=== PATIENT | female | born 1955 | race African-American/Black ===

== ENCOUNTER → 2022-04-03 | Outpatient (CLI) | payer MEDICARE, MEDICAID ==
[~2022-04-03] MED LIST: AMLO10TA80 PO; CYCL10TA21 PO; GABA-290 PO; HYDR-4009 PO; LOSA1TAB34 PO; MELO-104 PO; NALD0.2T3 PO
== END | disposition home or self-care (01) ==
LOC: LAB 08:11
PROVIDERS: ATTEND Surgery
DX: Z01.812 Encounter for preprocedural laboratory examination (principal); Z20.822 Contact with and (suspected) exposure to COVID-19
CPT/HCPCS: 87426; C9803

== ENCOUNTER 2022-04-04 06:38 | Inpatient (IN) | payer MEDICARE, MEDICAID ==
[~2022-04-04] VITALS: Ht 154.9 cm; Wt 93.9 kg
[2022-04-04] MEDS ORDERED: LACTATED RINGERS 1,000 ML IV SCH (06:45)
[2022-04-04] MEDS ORDERED: BUPIVACAINE HCL 0.5% (5MG/ML) 50ML ONE (06:48)
[2022-04-04] MEDS ORDERED: SKIN ADHESIVE 0.7 GM EA TOP ONE (06:49)
[2022-04-04] MEDS ORDERED: TRIAMCINOLONE ACETONIDE 40MG/ML 1ML VIAL ONE (07:17)
[2022-04-04] MEDS ORDERED: ONDANSETRON HCL 4MG/2ML INJ IV SCH (07:45)
[2022-04-04] MEDS ORDERED: ONDANSETRON HCL 4MG/2ML INJ ONE ×2 (07:47→08:32)
[2022-04-04] MEDS ORDERED: CEFAZOLIN SODIUM 1000MG/VIAL ONE (08:21)
[2022-04-04] MEDS ORDERED: SUCCINYLCHOLINE CHLORIDE 200MG/10ML IV ONE (08:21)
[2022-04-04] MEDS ORDERED: MIDAZOLAM HCL 2 MG/2 ML VIAL ONE (08:22)
[2022-04-04] MEDS ORDERED: FENTANYL CITRATE/PF 50MCG/ML 2ML VIAL ONE (08:22)
[2022-04-04] MEDS ORDERED: PROPOFOL 200MG/20ML VIAL IV ONE (08:22)
[2022-04-04] MEDS ORDERED: ROCURONIUM BROMIDE 10MG/ML VIAL 5ML IV ONE (08:32)
[2022-04-04] MEDS ORDERED: GLYCOPYRROLATE 0.2 MG/ML 2ML VIAL ONE ×2 (08:32)
[2022-04-04] MEDS ORDERED: DEXAMETHASONE 4MG/ML 1ML VIAL ONE (08:32)
[2022-04-04] MEDS ORDERED: NEOSTIGMINE METHYLSULFATE 1MG/ML 10 ML VIAL ONE (08:32)
[2022-04-04] MEDS ORDERED: METRONIDAZOLE 500 MG PREMIX 100 ML IV ONE (08:48)
[2022-04-04] MEDS: ENOXAPARIN 30MG/0.3ML SYR SUBCUT SCH (09:00)
[2022-04-04] MEDS ORDERED: HYDROMORPHONE HCL/PF 2MG/ML CPJ ONE (09:06)
[2022-04-04] MEDS ORDERED: BUPIVACAINE HCL/PF 0.5% (5MG/ML) 10ML ONE (09:07)
[2022-04-04] MEDS ORDERED: MEPERIDINE HCL/PF 25MG/ML CPJ IV PRN (09:30)
[2022-04-04] MEDS ORDERED: ONDANSETRON HCL 4MG/2ML INJ IV PRN ×2 (09:30→14:15)
[2022-04-04] MEDS ORDERED: LABETALOL 5MG/ML SYR 20 MG/4 ML SYRINGE IV PRN (09:30)
[2022-04-04] MEDS ORDERED: BUPIVACAINE HCL 0.5% 125 ML in ON-Q PM012 DRUG DELIV DEVICE 1 EA IR SCH (10:00)
[2022-04-04] MEDS: HYDROMORPHONE HCL/PF 2MG/ML CPJ IV PRN ×4 (11:04→15:18)
[2022-04-04] MEDS ORDERED: IPRATROPIUM/ALBUTEROL 0.5-3(2.5)MG/3ML NEB HHN SCH (11:30)
[2022-04-04] MEDS ORDERED: IPRATROPIUM/ALBUTEROL 0.5-3(2.5)MG/3ML NEB ONE (11:46)
[2022-04-04] MEDS ORDERED: ACETAMINOPHEN 650MG SUPP PR PRN ×2 (14:15)
[2022-04-04] MEDS: NITROGLYCERIN OINT 1GM/INCH UDPKT TD SCH ×3 (14:15→22:00)
[2022-04-04] MEDS ORDERED: HYDRALAZINE 20MG/ML VIAL IV PRN (14:15)
[2022-04-04 17:26] VITALS: BP 123/53
[2022-04-04 18:08] VITALS: BP 123/53
[2022-04-04] MEDS ORDERED: NALOXONE HCL 0.4MG/ML VIAL IV PRN (19:00)
[2022-04-04 20:00] VITALS: BP 139/63
[2022-04-04] MEDS: MORPHINE SULFATE 2 MG/ML CPJ (NOT FOR IM USE) IV PRN (20:41)
[2022-04-05] VITALS: BP 135/61
[2022-04-05] MEDS: MORPHINE SULFATE 2 MG/ML CPJ (NOT FOR IM USE) IV PRN (01:13)
[2022-04-05 04:00] VITALS: BP 134/59
[2022-04-05] MEDS: NITROGLYCERIN OINT 1GM/INCH UDPKT TD SCH ×3 (06:00→21:56)
[2022-04-05 06:28] LABS: HEMATOCRIT. 37.6 % (36.0-48.0); HEMOGLOBIN. 11.9 g/dL (12.0-16.0); MEAN CORPUSCULAR HEMOGLOBIN 26.4 pg (28.0-32.0); MEAN CORPUSCULAR VOLUME 83.1 fL (81.0-99.0); MEAN PLATELET VOLUME 8.6 fl (7.4-10.4); PLATELET 265 x1000/uL (130-400); RED BLOOD CELL COUNT 4.52 mill/uL (4.2-5.4); RED CELL DISTRIBUTION WIDTH 14.6 % (11.6-14.6)
[2022-04-05 06:42] LABS: CHLORIDE 103 mEq/L (98-107)
[2022-04-05 06:50] LABS: PHOSPHORUS 2.9 mg/dL (2.5-4.9)
[2022-04-05 08:00] VITALS: BP 138/75
[2022-04-05] MEDS: ENOXAPARIN 30MG/0.3ML SYR SUBCUT SCH ×3 (09:00→21:56)
[2022-04-05] MEDS ORDERED: DEXTROSE 50% WATER 50ML SYRINGE IV PRN (09:15)
[2022-04-05] MEDS: HYDROMORPHONE HCL/PF 2MG/ML CPJ IV PRN ×2 (10:17→18:30)
[2022-04-05] MEDS: BLOOD SUGAR DIAGNOSTIC STRIP TEST SCH ×3 (11:48→21:52)
[2022-04-05] MEDS: INSULIN LISPRO 100 UNITS/ML SUBCUT SCH ×3 (11:48→21:58)
[2022-04-05 12:00] VITALS: BP 138/68
[2022-04-05] MEDS: DEXT 5%/0.9% NACL 1,000 ML IV SCH ×2 (13:52→22:04)
[2022-04-05 16:00] VITALS: BP 137/70
[2022-04-05 17:34] LABS: PLATELET ESTIMATE NORMAL
[2022-04-05 20:00] VITALS: BP 139/55
[2022-04-06] VITALS: BP 125/60
[2022-04-06] MEDS: HYDROMORPHONE HCL/PF 2MG/ML CPJ IV PRN ×3 (00:50→18:33)
[2022-04-06] MEDS: KETOROLAC 15MG/ML VIAL IV PRN (00:55)
[2022-04-06 04:00] VITALS: BP 123/63
[2022-04-06] MEDS: NITROGLYCERIN OINT 1GM/INCH UDPKT TD SCH ×3 (05:34→21:42)
[2022-04-06] MEDS: BLOOD SUGAR DIAGNOSTIC STRIP TEST SCH ×4 (06:46→21:42)
[2022-04-06] MEDS: INSULIN LISPRO 100 UNITS/ML SUBCUT SCH ×4 (06:46→21:41)
[2022-04-06] MEDS: DEXT 5%/0.9% NACL 1,000 ML IV SCH (06:51)
[2022-04-06 07:09] LABS: HEMATOCRIT 35.1 % (36.0-48.0); HEMOGLOBIN 11.4 g/dL (12.0-16.0); MEAN CORPUSCULAR HEMOGLOBIN 26.9 pg (28.0-32.0); MEAN CORPUSCULAR VOLUME 83.3 fL (81.0-99.0); PLATELET 251 x1000/uL (130-400); RED BLOOD CELL COUNT 4.22 mill/uL (4.2-5.4); RED CELL DISTRIBUTION WIDTH 14.3 % (11.6-14.6)
[2022-04-06 07:22] LABS: CHLORIDE 108 mEq/L (98-107)
[2022-04-06 08:00] VITALS: BP 131/71
[2022-04-06] MEDS: ENOXAPARIN 30MG/0.3ML SYR SUBCUT SCH ×2 (08:41→21:42)
[2022-04-06] MEDS ORDERED: NALOXONE HCL 0.4MG/ML VIAL IV PRN (11:45)
[2022-04-06 12:00] VITALS: BP 133/73
[2022-04-06 16:00] VITALS: BP 131/61
[2022-04-06 20:00] VITALS: BP 168/69
[2022-04-06] MEDS: IPRATROPIUM/ALBUTEROL 0.5-3(2.5)MG/3ML NEB NEB PRN (23:50)
[2022-04-07] VITALS: BP 126/62
[2022-04-07] MEDS: KETOROLAC 15MG/ML VIAL IV PRN (02:52)
[2022-04-07] MEDS: IPRATROPIUM/ALBUTEROL 0.5-3(2.5)MG/3ML NEB NEB PRN (03:02)
[2022-04-07] MEDS: DEXT 5%/0.9% NACL 1,000 ML IV SCH (03:18)
[2022-04-07 03:59] VITALS: BP 122/63
[2022-04-07] MEDS: NITROGLYCERIN OINT 1GM/INCH UDPKT TD SCH ×3 (05:45→22:00)
[2022-04-07] MEDS: BLOOD SUGAR DIAGNOSTIC STRIP TEST SCH ×4 (06:03→21:00)
[2022-04-07] MEDS: INSULIN LISPRO 100 UNITS/ML SUBCUT SCH ×3 (06:03→16:21)
[2022-04-07 08:00] VITALS: BP 130/77
[2022-04-07] MEDS: ENOXAPARIN 30MG/0.3ML SYR SUBCUT SCH ×2 (08:56→22:53)
[2022-04-07 12:00] VITALS: BP 113/74
[2022-04-07 16:00] VITALS: BP 119/74
[2022-04-07] MEDS: HYDROMORPHONE HCL/PF 2MG/ML CPJ IV PRN (18:41)
[2022-04-08] MEDS: HYDROMORPHONE HCL/PF 2MG/ML CPJ IV PRN (03:00)
[2022-04-08 03:34] VITALS: BP 119/57
[2022-04-08] MEDS: INSULIN LISPRO 100 UNITS/ML SUBCUT SCH ×2 (07:40→12:32)
[2022-04-08 08:00] VITALS: BP 125/62
[2022-04-08] MEDS ORDERED: TRAMADOL 50MG TABLET PO PRN (08:15)
[2022-04-08] MEDS: ENOXAPARIN 30MG/0.3ML SYR SUBCUT SCH (09:00)
[2022-04-08 12:00] VITALS: BP 134/72
[2022-04-08] MEDS: BLOOD SUGAR DIAGNOSTIC STRIP TEST SCH (12:28)
[2022-04-08] MEDS: NITROGLYCERIN OINT 1GM/INCH UDPKT TD SCH (12:56)
[2022-04-08 13:51] VITALS: BP 134/72
== END 2022-04-08 14:35 | disposition home or self-care (01) | DRG 331 ==
LOC: OR 06:38 → 8WST 18:26
PROVIDERS: ADMIT Surgery; ATTEND Surgery
PROC: 0DTF0ZZ Resection of Right Large Intestine, Open Approach (ICD-10-PCS; principal; 2022-04-04)
DX: D12.2 Benign neoplasm of ascending colon (principal); I10 Essential (primary) hypertension; G89.4 Chronic pain syndrome; R26.9 Unspecified abnormalities of gait and mobility; M75.101 Unspecified rotator cuff tear or rupture of right shoulder, not specified as traumatic; M48.061 Spinal stenosis, lumbar region without neurogenic claudication; E11.9 Type 2 diabetes mellitus without complications; K63.9 Disease of intestine, unspecified; Z87.19 Personal history of other diseases of the digestive system; Z82.49 Family history of ischemic heart disease and other diseases of the circulatory system
CPT/HCPCS: 36415; 80048; 80053; 82962; 83036; 83735; 84100; 85025; 85027; 87426; 88307; 93970; 94640; 97162; 97166; C9803; J0330; J0690; J1100; J1170; J1650; J1815; J1885; J2250; J2270; J2405; J2704; J2710; J3010; J3301; J3490; J7042

== ENCOUNTER 2024-08-20 08:40 | Emergency (ER) | payer MEDICARE, MEDICAID ==
[~2024-08-20] VITALS: Ht 154.9 cm; Wt 89.0 kg
[~2024-08-20 08:40] MED LIST changes: +PROT40 MT
[2024-08-20 09:01] VITALS: O2SAT 100
[2024-08-20 09:17] VITALS: TEMP 97.9; O2SAT 100
[2024-08-20 09:54] LABS: BASOPHILS % 0.6 % (0.0-2.0); EOSINOPHILS % 0.4 % (0.0-5.0); HEMATOCRIT. 43.2 % (36.0-48.0); HEMOGLOBIN. 14.1 g/dL (12.0-16.0); LYMPHOCYTES % 32.2 % (20.0-50.0); MEAN CORPUSCULAR HEMOGLOBIN 27.7 pg (28.0-32.0); MEAN CORPUSCULAR HGB CONC 32.8 g/dL (31.0-37.0); MEAN CORPUSCULAR VOLUME 84.6 fL (81.0-99.0); MEAN PLATELET VOLUME 7.9 fl (7.4-10.4); MONOCYTES % 4.9 % (2.0-8.0); NEUTROPHILS % 61.9 % (40.0-76.0); PLATELET 274 x1000/uL (130-400); RED CELL DISTRIBUTION WIDTH 14.5 % (11.6-14.6); WHITE BLOOD COUNT 8.2 x1000/uL (4.5-11.0)
[2024-08-20 10:02] LABS: CARBON DIOXIDE 22 mEq/L (21-32); CHLORIDE 106 mEq/L (98-107); POTASSIUM 3.8 mEq/L (3.5-5.1); SODIUM 138 mEq/L (136-145)
[2024-08-20 10:03] LABS: CALCIUM 9.6 mg/dL (8.7-10.4)
[2024-08-20 10:07] LABS: CREATININE 0.9 mg/dL (0.6-1.0)
[2024-08-20 10:08] LABS: GLUCOSE 124 mg/dL (70-105); TROPONIN I HIGH SENSITIVITY 5 ng/L (3.0-34); UREA NITROGEN BLOOD 8 mg/dL (9-23)
[2024-08-20 10:09] LABS: ALANINE AMINOTRANSFERASE 14 IU/L (10-49); ALBUMIN 4.4 g/dL (3.2-4.8); ASPARTATE AMINOTRANSFERASE 16 IU/L (<34)
[2024-08-20 10:10] LABS: BILIRUBIN DIRECT 0.3 mg/dL (<=3.0); BILIRUBIN TOTAL 1.1 mg/dL (0.1-1.0); PROTEIN TOTAL 7.7 g/dL (6.0-8.3)
[2024-08-20 11:14] VITALS: BP 135/81; PULSE 64; RESP 14
[2024-08-20] MEDS: ONDANSETRON 4MG ODT PO NR (11:14)
[2024-08-20] MEDS: KETOROLAC 30MG/ML VIAL IV ONE (11:14)
[2024-08-20] MEDS: FAMOTIDINE 20MG TABLET PO NR (11:14)
[2024-08-20] MEDS: MAGNESIUM/ALUMINUM HYDROXIDE/SIMETHICONE 30ML UDC PO NR (11:14)
== END 2024-08-20 13:29 | disposition home or self-care (01) ==
LOC: ER 08:40
DX: F10.90 Alcohol use, unspecified, uncomplicated (principal); R10.11 Right upper quadrant pain; I10 Essential (primary) hypertension; E11.9 Type 2 diabetes mellitus without complications; Y90.9 Presence of alcohol in blood, level not specified; Z79.899 Other long term (current) drug therapy
CPT/HCPCS: 99285; 74177; 96374; 80076; 80048; 83690; 85025; 84484; 36415; J1885; Q0162